=== PATIENT | male | born 1975 | race Caucasian/White ===

== ENCOUNTER 2017-07-17 22:48 | Day surgery (SDC) | payer OTHER ==
--- NOTE | 2017-07-17 23:49 | PDOC ---
History of Present Illness - General Chief Complaint: Injury Stated Complaint: PCP SENT/RT LEG PAIN Time Seen by Provider: 07/17/17 23:19 - History of Present Illness Initial Comments: 07/17/17 23:40 Pt is a 42M with PMH HTN, MRSA cellulitis requiring debriedment 4 yr ago, L Bejarano 's palsy, and recent fungal infection of L foot (completed course of fluconazole ) who presents to ED sent by his orthopedist (Dr. Rosas Cole) for preop workup for Right knee surgery tomorrow. Pt states he had a traumatic sub-acute complete right quadriceps tendon tear on 07/09/17. He went to see Dr. Coel today who wanted to operate on the knee tomorrow and sent pt to ED with a letter outlining the requested workup, which includes CXR, EKG, UA, CBC, BMP, PT, PTT, INR, type & screen. Pt currently has no pain and no complaints. Denies headache, cp, sob, nausea, vomiting, diarrhea, difficulty eating/ drinking. Past History - Past Medical History Allergies/Adverse Reactions: Allergies Allergy/AdvReac Type Severity Reaction Status Date / Time primaquine Allergy Verified 07/17/17 22:51 Home Medications: Ambulatory Orders Amlodipine Besylate/Benazepril [Lotrel 5-10 mg Capsule] 1 cap PO DAILY 07/18/17 Naproxen Sodium [Naproxen Sodium Cr] 500 mg PO PRN 07/18/17 Oxycodone HCl/Acetaminophen [Oxycodone-Acetaminophen 5-325] 1 each PO PRN COPD: No HTN: Yes Other medical history: bells palsy - Suicide/Smoking/Psychosocial Hx Smoking History: Current every day smoker Number of Cigarettes Smoked Daily: 10 Information on smoking cessation initiated: No Review of Systems - Review of Systems Able to Perform ROS?: Yes Is the patient limited Y[place]ut proficient: No Constitutional: Yes: Symptoms Reported. No: Chills, Diaphoresis, Fever HEENTM: Yes: Symptoms Reported. No: Blurred Vision Respiratory: Yes: Symptoms reported. No: Cough, Shortness of Breath Cardiac (ROS): Yes: Symptoms Reported. No: Chest Pain, Edema, Irregular Heart Rate, Syncope ABD/GI: Yes: Symptoms Reported. No: Abdominal Distended, Diarrhea, Nausea, Vomiting, Indigestion, Abdominal cramping : Yes: Symptoms Reported. No: Burning, Dysuria, Discharge Musculoskeletal: Yes: Symptoms Reported, Joint Pain (right knee) *Physical Exam - Vital Signs Last Vital Signs Temp Pulse Resp BP Pulse Ox 98.5 F 94 H 18 140/73 96 07/17/17 22:51 07/17/17 22:51 07/17/17 22:51 07/17/17 22:51 07/17/17 22:51 - Physical Exam General Appearance: Yes: Appropriately Dressed. No: Apparent Distress HEENT: positive: EOMI, RITESH, Normal ENT Inspection Neck: positive: Supple. negative: Tender Respiratory/Chest: positive: Lungs Clear, Normal Breath Sounds. negative: Chest Tender, Respiratory Distress, Accessory Muscle Use Cardiovascular: positive: Regular Rhythm, Regular Rate, S1, S2. negative: Edema , JVD, Murmur Vascular Pulses: Dorsalis-Pedis (R): 2+, Doralis-Pedis (L): 2+ Gastrointestinal/Abdominal: positive: Normal Bowel Sounds, Flat, Soft. negative : Tender, Organomegaly Extremity: negative: Normal Inspection (right leg splint for R quad tendon tear) Neurologic: positive: power checker II-XII NML intact, Fully Oriented, Alert, Normal Mood/ Affect, Normal Response ED Treatment Course - LABORATORY CBC & Chemistry Diagram: 07/18/17 02:15 07/18/17 02:15 Medical Decision Making - Medical Decision Making 07/17/17 23:49 Pt is a 42M w/ PMH HTN, MRSA cellulitis, L bejarano's palsy, recent fungal infection of foot who was sent to ED by Dr. Rosas Cole for pre-op workup for right knee surgery tomorrow. -CXR -EKG -UA -CBC -BMP -PT -PTT -INR -type and screen 07/17/17 23:50 Microblog sent to Admitting phone. 07/17/17 23:52 Attending spoke with admitting hospitalist who accepts admission to obs. Admission order placed 07/18/17 00:11 Pt counselled extensively on smoking cessation. 07/18/17 01:25 Pt seen by hospitalist 07/18/17 03:29 No admission order present Admission order placed again 07/18/17 04:12 No complaints at this time *DC/Admit/Observation/Transfer Diagnosis at time of Disposition: Tendon tear - Discharge Dispostion Admit: Yes - Referrals - Patient Instructions - Post Discharge Activity
--- NOTE | 2017-07-17 23:49 | PDOC ---
Attending Attestation - Resident Resident Name: Margarito Nolasco - ED Attending Attestation I have performed the following: I have examined & evaluated the patient, The case was reviewed & discussed with the resident, I agree w/resident's findings & plan, Exceptions are as noted - HPI HPI: 07/17/17 23:44 Pt is for pre-op for right knee surgery tomorrow. Pt has no complaints. - Physicial Exam PE: 07/17/17 23:47 *Physical Exam General Appearance: Yes: Appropriately Dressed. No: Apparent Distress, Intoxicated HEENT: positive: EOMI, RITESH, Normal ENT Inspection, Normal Voice, TMs Normal, Pharynx Normal. negative: Pale Conjunctivae, Photophobia, Scleral Icterus (R), Scleral Icterus (L) Neck: positive: Trachea midline, Normal Thyroid, Supple. negative: Tender, Rigid, Carotid bruit, Stridor, Lymphadenopathy (R), Lymphadenopathy (L), Thyromegaly Respiratory/Chest: positive: Lungs Clear, Normal Breath Sounds. negative: Chest Tender, Respiratory Distress, Accessory Muscle Use, Labored Respiration, RES, Crackles, Rales, Rhonchi, Stridor, Wheezing, Dullness Cardiovascular: positive: Regular Rhythm, Regular Rate, S1, S2. negative: Edema , JVD, Murmur, Bradycardia, Tachycardia Vascular Pulses: Dorsalis-Pedis (R): 2+, Doralis-Pedis (L): 2+ Gastrointestinal/Abdominal: positive: Normal Bowel Sounds, Flat, Soft. negative : Tender, Organomegaly, Pulsatile Mass, Increased Bowel Sounds, Decreased BS, Distended, Guarding, Rebound, Hernia, Hepatomegaly, Spleenomegaly Lymphatic: negative: Adenopathy, Tenderness Musculoskeletal: positive: Normal Inspection. negative: CVA Tenderness, Decreased Range of Motion Extremity: positive: Normal Capillary Refill, Normal Inspection, Normal Range of Motion, Pelvis Stable. negative: Tender, Pedal Edema, Swelling, Erythema Integumentary: positive: Normal Color, Dry, Warm. negative: Cyanotic, Erythema , Jaundice, Rash Neurologic: positive: primary mill roller II-XII NML intact, Fully Oriented, Alert, Normal Mood/ Affect, Motor Strength 5/5. negative: EOM Palsy, Facial Droop, Sensory Deficit - Medical Decision Making 07/17/17 23:48 Pt admitted to Med surg, for Pre-op for right knww surgery for Dr. Og Cole
--- NOTE | 2017-07-18 01:40 | PN ---
Teaching Attending Note Name of Resident: Laci Kilpatrick ATTENDING PHYSICIAN STATEMENT I saw and evaluated the patient. I reviewed the resident's note and discussed the case with the resident. I agree with the resident's findings and plan as documented. SUBJECTIVE: 42 M with pmhx of HTN, MRSA cellulitis s/p debridement 4 years ago, L. foot fungal infection post fluconazole, L. Bejarano's Palsy (s/p tx. with Prednisone/ Valcyclovir), current smoker, who was sent in from ;s office for pre-op eval before surgery in am. Pt. had work injury resulting in traumatic sub-acute right quadricep tendon tear on 07/09/17. Pt. States pain is controlled and denies chest pain, pressure, or shortness of breath. OBJECTIVE: Physical: VS: Vital Signs Period Temp Pulse Resp BP Sys/Weiss Pulse Ox Last 24 Hr 98.5 F 94 18 140/73 96 GEN: NAD, Resting in bed AAox3 HEENT: NCAT, PERRL, Throat without erythema or exudates CARD: RRR S1, S2 RESP:CTAB ABD: BSx4, NTD to palaption EXT: - C/C/E CBCD WBC 10.4 K/mm3 (4.0-10.0) H 07/18/17 02:15 RBC 4.42 M/mm3 (4.00-5.60) 07/18/17 02:15 Hgb 14.1 GM/dL (11.7-16.9) 07/18/17 02:15 Hct 42.0 % (35.4-49) 07/18/17 02:15 MCV 95.1 fl (80-96) 07/18/17 02:15 MCHC 33.6 g/dl (32.0-35.9) 07/18/17 02:15 RDW 12.5 % (11.9-15.9) 07/18/17 02:15 Plt Count 250 K/MM3 (134-434) 07/18/17 02:15 MPV 8.7 fl (7.5-11.1) 07/18/17 02:15 EKG: NSR TWI III, AVf, LAD CXR- No acute process ASSESSMENT AND PLAN: 42 M with pmhx of HTN, MRSA cellulitis s/p debridement 4 years ago, L. foot fungal infection post fluconazole, L. Bejarano's Palsy (s/p tx. with Prednisone/ Valcyclovir), who was sent in from ;s office for pre-op eval for. R. Quadricep Tendon tear 1.) R. Quadricep tendon tear - Type and Screen - Coags - NPO - Ivf - UA, UCx - CBC, BMP, UA, UCx 2.) HTN - C/W Amlodipine and Rampril 3.) Bejarano's Palsy - S/P Tx - Monitor 4.) Dvt Ppx - Low Risk - As per ortho post sx Place in Med-Sx
[2017-07-18 02:29] LABS: BASO # 0.1 # (0.1-1); BASO % 0.5 % (0-2.0); EOS # 0.3 # (0-4.5); EOS % 2.8 % (0-4.5); LYMPH # 2.7 (8-40); MCHC 33.6 g/dl (32.0-35.9); MEAN CELL VOLUME 95.1 fl (80-96); MEAN PLT VOLUME 8.7 fl (7.5-11.1); MONO # 0.8 # (3.8-10.2); NEUT # 6.5 # (42.8-82.8); NEUT % 63.1 % (42.8-82.8); PLATELET COUNT 250 K/MM3 (134-434); RDW 12.5 % (11.9-15.9); WHITE BLOOD COUNT 10.4 K/mm3 (4.0-10.0)
[2017-07-18 02:46] LABS: INR 1.03 (0.82-1.09); PROTHROMBIN TIME (PATIENT) 11.6 SEC (9.98-11.88)
--- NOTE | 2017-07-18 02:57 | HP ---
CHIEF COMPLAINT: Pre-op workup for R quad tendon repair HISTORY OF PRESENT ILLNESS: 42 yo man w/ pmh of HTN, L sided bells palsy, and MRSA cellulitis, who presents to ED for pre-op work-up for surgical repair of R quadricep tear on 07/[address] Rosas Ray. Pt experienced traumatic complete R quad tendon rupture at work on 07/09. Referred to Dr. Ray for surgical repair, who sent patient to ED today for pre-op clearance and work-up for surgical repair tomorrow. Pt denies any BRAVO/dizziness, CP, SOB, BECERRA, cough, N/V, abdominal pain, syncope, new neurologic symptoms. Pt w/ no adverse reactions to anesthesia in past. Denies any cardiovascular or pulmonary conditions that would preclude from surgery. Pain is currently well controlled and pt has no other complaints. Pt recently completed course of valtrex/prednisone for bells palsy diagnosed 2- 3 weeks ago. Believed to be idiopathic/psychosomatic in nature per patient. ER course was notable for: (1) Normal vitals (2) Unremarkable CXR (3) Recent Travel: No PAST MEDICAL HISTORY: [place] palsy HTN Fungal foot infection MRSA cellulitis PAST SURGICAL HISTORY: I+D for MRSA cellulitis Social History: Smoking: Current smoker. 10 cigs/day Alcohol: Denies Drugs: Denies Family History: Noncontributory. No hx of cardiovascular or pulmonary conditions. Allergies primaquine Allergy (Verified 07/17/17 22:51) HOME MEDICATIONS: Home Medications Medication Instructions Recorded Amlodipine Besylate/Benazepril 1 cap PO DAILY 07/18/17 [Lotrel 5-10 mg Capsule] Naproxen Sodium [Naproxen Sodium 500 mg PO PRN 07/18/17 Cr] Oxycodone HCl/Acetaminophen 1 each PO PRN 07/18/17 [Oxycodone-Acetaminophen 5-325] REVIEW OF SYSTEMS CONSTITUTIONAL: Absent: fever, chills, diaphoresis, generalized weakness, malaise, loss of appetite, weight change HEENT: Absent: rhinorrhea, nasal congestion, throat pain, throat swelling, difficulty swallowing, mouth swelling, ear pain, eye pain, visual changes CARDIOVASCULAR: Absent: chest pain, syncope, palpitations, irregular heart rate, lightheadedness , peripheral edema RESPIRATORY: Absent: cough, shortness of breath, dyspnea with exertion, orthopnea, wheezing, stridor, hemoptysis GASTROINTESTINAL: Absent: abdominal pain, abdominal distension, nausea, vomiting, diarrhea, constipation, melena, hematochezia GENITOURINARY: Absent: dysuria, frequency, urgency, hesitancy, hematuria, flank pain, genital pain MUSCULOSKELETAL: R knee arthralgia and swelling w/ decreased mobility Absent: myalgia, back pain, neck pain SKIN: Absent: rash, itching, pallor HEMATOLOGIC/IMMUNOLOGIC: Absent: easy bleeding, easy bruising, lymphadenopathy, frequent infections ENDOCRINE: Absent: unexplained weight gain, unexplained weight loss, heat intolerance, cold intolerance NEUROLOGIC: Absent: headache, focal weakness or paresthesias, dizziness, unsteady gait, seizure, mental status changes, bladder or bowel incontinence PHYSICAL EXAMINATION Vital Signs - 24 hr 07/17/17 22:51 Temperature 98.5 F Pulse Rate 94 H Respiratory 18 Rate Blood Pressure 140/73 O2 Sat by Pulse 96 Oximetry (%) GENERAL: Awake, alert, and fully oriented, in no acute distress. HEAD: Normal with no signs of trauma. L facial droop noted. EYES: Pupils equal, round and reactive to light, extraocular movements intact, sclera anicteric, conjunctiva clear. No lid lag. EARS, NOSE, THROAT: Ears normal, nares patent, oropharynx clear without exudates. Moist mucous membranes. NECK: Normal range of motion, supple without lymphadenopathy, JVD, or masses. LUNGS: Breath sounds equal, clear to auscultation bilaterally. No wheezes, and no crackles. No accessory muscle use. HEART: Regular rate and rhythm, normal S1 and S2 without murmur, rub or gallop. ABDOMEN: Soft, nontender, not distended, normoactive bowel sounds, no guarding, no rebound, no masses. No abdominal bruit. No hepatomegaly or splenomegaly. MUSCULOSKELETAL: R mechanical knee brace noted on R leg, fixed in full extension with mild tenderness to palpation. No other bony deformities, decreased ROM or tenderness. No CVA tenderness. UPPER EXTREMITIES: 2+ pulses, warm, well-perfused. No cyanosis. No clubbing. No peripheral edema. LOWER EXTREMITIES: 2+ pulses DP, PT pulses; warm, well-perfused. No calf tenderness. No peripheral edema. NEUROLOGICAL: Cranial nerves II-XII intact. Normal speech. Gait limited by R leg brace, however otherwise normal PSYCHIATRIC: Cooperative. Good eye contact. Appropriate mood and affect. SKIN: Warm, dry, normal turgor, no rashes or lesions noted, normal capillary refill. Labs pending No micro pending EKG pending CXR 07/18 - No pathology noted. ASSESSMENT/PLAN: 42 yo man w/ pmh of HTN, L sided bells palsy, and MRSA cellulitis, who presents to ED for pre-op work-up for surgical repair of R quadricep tear on 07/[address] Rosas Ray. #R quadricep tendon rupture - CXR, EKG, UA, CBC, BMP, PT/PTT/INR, T&S per Dr. Ray - Pain control with paracetemol - NPO after midnight - For surgery w/ Dr. Ray tomorrow - Pt has no hx of cardiac arrhythmias, valvular dz or chronic pulmonary conditions, unlimited exercise tolerance, w/ only well-controlled HTN as a chronic medical condition. No advanced age, other cardiovascular comorbities or hx of adverse reaction to anesthesia. Pt is low risk for this intermediate-risk , non-emergent elective surgery. - Post-op management per surgical team #HTN - Continue home BP meds (Amlodipine/benazepril 5-10) #Bejarano's Palsy - F/u w/ outpt neurologist - Completed prednisone, valtrex course PPX Post-op DVT ppx per surgical team FEN PO hydration Daily BMPs, no electrolyte abnormalities NPO after midnight Dispo: Admit to med-surg for pre-op work-up, likely surgery tomorrow pending clearance Plan discussed with attending, Dr. Mich Kilpatrick, PGY1 Visit type - Emergency Visit Emergency Visit: No - New Patient This patient is new to me today: Yes Date on this admission: 07/18/17 - Critical Care Critical Care patient: No
[2017-07-18 03:12] LABS: ALBUMIN 3.6 g/dl (3.4-5.0); ALK PHOS 87 U/L (45-117); ANION GAP 10 (8-16); BILIRUBIN,TOTAL 0.5 mg/dL (0.2-1.0); CALCIUM 8.6 mg/dL (8.5-10.1); CO2 26 mmol/L (21-32); CREATININE 1.2 mg/dL (0.7-1.3); GLUCOSE,RANDOM 103 mg/dL (74-106); SGOT/AST 22 U/L (15-37); SGPT/ALT 38 U/L (12-78)
--- NOTE | 2017-07-18 08:33 | PN ---
Physical Exam: SUBJECTIVE: Patient seen and examined OBJECTIVE: Vital Signs Period Temp Pulse Resp BP Sys/Weiss Pulse Ox Last 24 Hr 98.5 F 94 18 140/73 96 GENERAL: The patient is awake, alert, and fully oriented, in no acute distress. HEAD: Normal with no signs of trauma. EYES: PERRL, extraocular movements intact, sclera anicteric, conjunctiva clear. No ptosis. ENT: Ears normal, nares patent, oropharynx clear without exudates, moist mucous membranes. NECK: Trachea midline, full range of motion, supple. LUNGS: Breath sounds equal, clear to auscultation bilaterally, no wheezes, no crackles, no accessory muscle use. HEART: Regular rate and rhythm, S1, S2 without murmur, rub or gallop. ABDOMEN: Soft, nontender, nondistended, normoactive bowel sounds, no guarding, no rebound, no hepatosplenomegaly, no masses. EXTREMITIES: 2+ pulses, warm, well-perfused, no edema. NEUROLOGICAL: Cranial nerves II through XII grossly intact. Normal speech, gait not observed. PSYCH: Normal mood, normal affect. SKIN: Warm, dry, normal turgor, no rashes or lesions noted Laboratory Results - last 24 hr 07/18/17 07/18/17 07/18/17 02:15 02:15 02:15 WBC 10.4 H RBC 4.42 Hgb 14.1 Hct 42.0 MCV 95.1 MCH 32.0 MCHC 33.6 RDW 12.5 Plt Count 250 MPV 8.7 Neutrophils % 63.1 Lymphocytes % 26.1 Monocytes % 7.5 Eosinophils % 2.8 Basophils % 0.5 PT with INR 11.60 INR 1.03 PTT (Actin FS) Sodium 141 Potassium 3.8 Chloride 105 Carbon Dioxide 26 Anion Gap 10 BUN 19 H Creatinine 1.2 Creat Clearance w eGFR > 60 Random Glucose 103 Calcium 8.6 Total Bilirubin 0.5 AST 22 ALT 38 Alkaline Phosphatase 87 Total Protein 7.0 Albumin 3.6 Blood Type Antibody Screen 07/18/17 07/18/17 02:15 02:15 WBC RBC Hgb Hct MCV MCH MCHC RDW Plt Count MPV Neutrophils % Lymphocytes % Monocytes % Eosinophils % Basophils % PT with INR INR PTT (Actin FS) 34.1 Sodium Potassium Chloride Carbon Dioxide Anion Gap BUN Creatinine Creat Clearance w eGFR Random Glucose Calcium Total Bilirubin AST ALT Alkaline Phosphatase Total Protein Albumin Blood Type O POSITIVE Antibody Screen Negative Active Medications Generic Name Dose Route Start Last Admin Trade Name Freq PRN Reason Stop Dose Admin Amlodipine Besylate 5 mg 07/18/17 10:00 Norvasc - PO DAILY [place] Lisinopril 10 mg 07/18/17 10:00 Prinivil PO DAILY [place] Oxycodone/Acetaminophen 1 combo 07/18/17 02:45 Percocet 5/325 - PO PRN [facility] ASSESSMENT/PLAN:
[2017-07-18] MEDS ORDERED: amLODIPine BESYLATE 5 MG TABLET (FP) ONE (08:45)
[2017-07-18] MEDS ORDERED: LISINOPRIL 5 MG TABLET (FP) ONE (08:46)
[2017-07-18] MEDS: amLODIPine BESYLATE 5 MG TABLET (FP) PO SCH ×2 (08:47→19:07)
[2017-07-18] MEDS: LISINOPRIL 10 MG TABLET (FP) PO SCH ×2 (08:47→19:07)
[2017-07-18] MEDS ORDERED: ACETAMINOPHEN 325 MG TABLET (FP) PO PRN (08:50)
[2017-07-18] MEDS ORDERED: oxyCODONE HCL 5 MG TABLET PO PRN ×3 (08:50→16:41)
[2017-07-18] MEDS ORDERED: PATIENT'S OWN MEDICATION (NON-FORMULARY) (Amlodipine Besylate/Benazepril [Lotrel 5-10 Mg C PO SCH (10:00)
[2017-07-18 10:07] LABS: CPK 234 IU/L (39-308)
[2017-07-18 10:08] LABS: TROPONIN I < 0.02 ng/ml (0.00-0.05)
[2017-07-18 12:32] VITALS: BMI 29.3
[2017-07-18] MEDS ORDERED: DEXTROSE 5%-NORMAL SALINE 1,000 ML IV SCH (12:45)
[2017-07-18] MEDS ORDERED: DEXAMETHASONE SOD PHOSPHATE/PF 10 MG/ML SDV ONE (13:22)
[2017-07-18] MEDS ORDERED: BUPIVACAINE HCL/PF (5 MG/ML) 30 ML VIAL IJ ONE (13:23)
[2017-07-18] MEDS ORDERED: MIDAZOLAM HCL 2 MG/2 ML SINGLE DOSE VIAL ONE (13:23)
--- NOTE | 2017-07-18 13:27 | EKG ---
Test Reason : Blood Pressure : / mmHG Vent. Rate : 076 BPM Atrial Rate : 076 BPM P-R Int : 158 ms QRS Dur : 088 ms QT Int : 388 ms P-R-T Axes : 046 -31 -07 degrees QTc Int : 436 ms NORMAL SINUS RHYTHM LEFT AXIS DEVIATION MODERATE VOLTAGE CRITERIA FOR LVH, MAY BE NORMAL VARIANT ABNORMAL ECG NO PREVIOUS ECGS AVAILABLE Confirmed by CALISTA GA MD ([id number]) on 07/18/2017 1:26:48 PM Referred By: Confirmed By:CALISTA GA MD
--- NOTE | 2017-07-18 13:27 | EKG ---
Test Reason : Blood Pressure : / mmHG Vent. Rate : 059 BPM Atrial Rate : 059 BPM P-R Int : 150 ms QRS Dur : 086 ms QT Int : 422 ms P-R-T Axes : 017 -16 -15 degrees QTc Int : 417 ms SINUS BRADYCARDIA MINIMAL VOLTAGE CRITERIA FOR LVH, MAY BE NORMAL VARIANT BORDERLINE ECG WHEN COMPARED WITH ECG OF 18-JUL-2017 02:29, NO SIGNIFICANT CHANGE WAS FOUND Confirmed by SURY THRASHER, CALISTA ([id number]) on 07/18/2017 1:27:30 PM Referred By: Confirmed By:CALISTA GA MD
[2017-07-18] MEDS ORDERED: oxyCODONE HCL 10 MG SUSTAINED ACTING TABLET PO ONE (13:28)
[2017-07-18] MEDS ORDERED: TRANEXAMIC ACID 1000 MG/10 ML VIAL IVPUSH ONE (13:28)
[2017-07-18] MEDS ORDERED: CEFAZOLIN 2 GM/D5W 2 GM/50 ML ML IVPB ONE (13:28)
[2017-07-18] MEDS ORDERED: VANCOMYCIN 1,000 MG in DEXTROSE 5%-WATER - 250 ML IVPB ONE ×2 (13:28→18:57)
[2017-07-18] MEDS ORDERED: ROPIVACAINE HCL 0.5% 30ML VIAL ONE (13:44)
[2017-07-18] MEDS ORDERED: BUPIVACAINE HCL/PF 2.5 MG/ML - 30 ML VIAL IJ ONE (13:44)
--- NOTE | 2017-07-18 13:47 | PN ---
Progress Note (short form) - Note Progress Note: 42M s/p mechanical slip/injury at work (07/09/2017) p/w sub-acute complete right quadriceps tendon tear. Pain well controlled. Pt. admitted through ED overnight to medical hospitalist service. No acute events. Labs & vitals reviewed. PE: AAO x 3, NAD. R Knee: Knee immobilizer intact & in place. (+) Sulcus sign over distal quadriceps tendon. Unable to SLR. NVI distally. Imaging: No new imaging obtained. Outpatient MRI R knee demonstrates full thickness quadriceps tear ~ 2.1cm proximal to the superior pole patella. A/P: 42M p/w complete right quadriceps tendon tear. -Long conversation held with patient regarding natural history and progression of quadriceps tendon tears. -Risks, benefits, and alternatives of non-surgical VS surgical intervention discussed with and understood by patient. He wishes to pursue a surgical solution to his right quadriceps tendon tear. -NPO, IVF. -Consent in chart for open repair right quadriceps tendon tear. -Pain control. -Hold DVT PPx. -Care per primary medical team. -Will follow.
[2017-07-18] MEDS ORDERED: PROPOFOL 20 ML ONE ×2 (14:32→15:14)
[2017-07-18] MEDS ORDERED: VANCOMYCIN 1,000 MG VIAL (RESTRICTED TO ID ONLY) ONE (14:37)
[2017-07-18] MEDS ORDERED: ONDANSETRON 4 MG/2 ML VIAL ONE (14:37)
[2017-07-18] MEDS ORDERED: DEXAMETHASONE SOD PHOSPHATE 4 MG/1 ML VIAL ONE (14:37)
[2017-07-18] MEDS ORDERED: ceFAZolin SODIUM 1 GM VIAL ONE (14:37)
--- NOTE | 2017-07-18 14:44 | HOSP ---
Subjective - Review of Symptoms Musculoskeletal: Yes: Extremity Pain Physical Examination Vital Signs: Vital Signs Temperature 97.8 F 07/18/17 13:00 Pulse Rate 62 07/18/17 13:00 Respiratory Rate 18 07/18/17 13:00 Blood Pressure 127/81 07/18/17 13:00 O2 Sat by Pulse Oximetry (%) 99 07/18/17 13:00 Constitutional: Yes: Well Nourished, Anxious Eyes: Yes: WNL, Conjunctiva Clear, EOM Intact HENT: Yes: WNL, Atraumatic, Normocephalic Neck: Yes: WNL, Supple, Trachea Midline Cardiovascular: Yes: WNL, Regular Rate and Rhythm, S1, S2 Respiratory: Yes: WNL, Regular, CTA Bilaterally Gastrointestinal: Yes: WNL, Normal Bowel Sounds, Soft ...Rectal Exam: Yes: Deferred Renal/: Yes: WNL Musculoskeletal: Yes: Other (right lower extremity-->knee immobilzer, point tenderness noted to pre-patella) Edema: No Peripheral Pulses WNL: Yes Peripheral Pulses: Left Radial: 4+, Right Radial: 4+, Left Doralis Pedis: 3+, Right Dorsalis Pedis: 3+, Left Femoral: 3+, Right Femoral: 3+ Integumentary: Yes: WNL Neurological: Yes: WNL, Alert, Oriented ...Motor Strength: WNL Psychiatric: Yes: WNL, Alert, Oriented Labs: CBC, BMP 07/18/17 02:15 07/18/17 02:15 Hospitalist Encounter Assessment: patient was transferred to [facility] for right tendon quadracep repair - remain npo, ivf ordered - hold ac pending OR
[2017-07-18] MEDS ORDERED: PROMETHAZINE HCL 25 MG/1 ML VIAL IVPUSH PRN (16:41)
[2017-07-18] MEDS ORDERED: ONDANSETRON 4 MG/2 ML VIAL IVPUSH PRN ×2 (16:41→18:57)
[2017-07-18] MEDS ORDERED: ACETAMINOPHEN 325 MG TABLET (FP) ONE (17:41)
[2017-07-18] MEDS: ACETAMINOPHEN 325 MG TABLET (FP) PO SCH ×2 (17:43→19:08)
[2017-07-18] MEDS ORDERED: MAG HYDROX/AL HYDROX/SIMETH 30 ML UNIT-DOSE CUP PO PRN (18:57)
[2017-07-18] MEDS ORDERED: MAGNESIUM HYDROX 2400MG/30ML ORAL SUSPENSION 30 ML CUP PO PRN (18:57)
[2017-07-18] MEDS ORDERED: LACTATED RINGERS SOLUTION 1,000 ML IV SCH (19:00)
[2017-07-18] MEDS ORDERED: VANCOMYCIN 1 GRAM (PRE-DOCKED) 1,000 MG/250 ML BAG IVPB ONE (19:27)
--- NOTE | 2017-07-18 21:22 | OP ---
DATE OF OPERATION: 07/18/2017 SURGEON: Rosas Cole MD CALL CENTER ANALYST: Og Cole MD PREOPERATIVE DIAGNOSIS: Complete rupture of right quadriceps tendon. POSTOPERATIVE DIAGNOSIS: Complete rupture of right quadriceps tendon. SURGICAL PROCEDURE: Open right quadriceps tendon repair. ANESTHESIA: Spinal and regional. POSITION: Supine. INCISION: Anterior. ESTIMATED BLOOD LOSS: Minimal. INTRAVENOUS FLUIDS: See Anesthesia record. SPECIMENS: None. DRAINS: None. COMPLICATIONS: None. URINE OUTPUT: None. BACTERIOLOGY: None. TRANSFUSIONS: None. CLOSURE: No. 1 and 2-0 Vicryl with 3-0 Biosyn/Monocryl. INDICATIONS: The patient is a 42-year-old male who was seen in our outpatient orthopedic office yesterday and diagnosed with a closed, complete right quadriceps tendon tear. He was indicated for urgent open surgical repair to maximize the potential for this injury to heal, to facilitate early motion and mobilization, and to prevent the complications associated with sedentary lifestyle. The patient was identified in the holding area by his armband. A long discussion was held with the patient regarding the risks, benefits, and alternatives of the above named procedure. Risks include, but are not limited to: pain, bleeding, infection, damage to surrounding structures (including nerves, blood vessels, skin, ligaments, tendons, and bone), wound complications, failure of surgical repair, need for further surgery, blood clots , myocardial infarction, pulmonary embolism, anesthesia complications, compartment syndrome, limb loss, limp, loss of function, and . Benefits as mentioned above. Alternatives include no surgery. All questions were answered. The patient understood and agreed to the procedure. Informed consent was obtained, witnessed, and verified. The patient's correct operative limb - that is the right lower extremity - was marked, and the patient was taken to the operating room after being seen by the anesthesia and nursing staff. PROCEDURE: The patient was brought into the operating room, placed on the OR table and secured with a safety strap. Consent and the operative side were again verified with the patient and Nursing and anesthesia staff. Anesthesia was then administered without complications including IV Ancef and Vancomycin, as he has suffered previous MRSA infections. A timeout was done, led by me, the attending surgeon. A preoperative orthopaedic exam revealed a positive sulcus sign over the right distal quadriceps tendon as well as a knee effusion. The patient was positioned with all bony prominences well padded, a tourniquet was placed proximally on the right thigh and set 300 mmHg. The operative site was then prepped and draped in standard sterile fashion. A timeout was again done. The limb was exsanguinated using an Esmarch, the tourniquet was inflated, and the case began. A standard midline longitudinal incision was made overlying the right quadriceps mechanism and extending to the middle of the patellar ligament. Sharp dissection was carried down to the level of the quadriceps mechanism where the complete transverse tear of the quadriceps tendon was identified. The wound and the intra- articular space were copiously irrigated via patellofemoral joint. Next, the soft tissues adjacent to the quadriceps mechanism were primarily repaired using No. 1 Vicryl stitches. Next , a No. 2 FiberWire suture was used in Krackow-stitch fashion to secure the quadriceps mechanism. After this, 2 longitudinal and parallel drill holes were made using a 2.7-mm drill bit into the patella from [id number] direction. The free ends of the FiberWire stitch were passed through these drill holes using a Hayden needle and nylon loop suture. With the knee fully extended, these FiberWire sutures were then fastened and tied tightly beneath the inferior pole of the patella. The wounds were then copiously irrigated, and hemostasis was assured. The wounds were closed using a combination of No. 1 and 2-0 Vicryl sutures as well as a 3-0 Biosyn suture. A sterile compressive dressing was applied, and the sponge and needle counts were correct at the end of the case. The tourniquet was then released. A long-leg cylinder cast was then applied. The patient was then transferred to a hospital bed and transferred to the recovery room in stable condition, having tolerated the procedure well. Sawyer, the attending surgeon, was present and scrubbed throughout the case. MD CLAU Aleman/[id number] [facility] [place]
[2017-07-18] MEDS: GABAPENTIN 300 MG CAPSULE (FP) PO SCH (21:34)
[2017-07-18] MEDS: oxyCODONE HCL 10 MG SUSTAINED ACTING TABLET PO SCH (21:34)
[2017-07-18] MEDS: SENNOSIDES/DOCUSATE COMBO (SENNA PLUS) TABLET (UD) PO SCH (21:36)
[2017-07-19] MEDS: ACETAMINOPHEN 325 MG TABLET (FP) PO SCH ×3 (00:11→12:50)
[2017-07-19] MEDS: CEFAZOLIN 2 GM/D5W 2 GM/50 ML ML IVPB SCH ×2 (02:08→09:42)
[2017-07-19 08:44] LABS: ANION GAP 8 (8-16); CALCIUM 9.1 mg/dl (8.4-10.2); CO2 23 mmol/L (22-28); CREATININE 0.7 mg/dl (0.6-1.3); GLUCOSE,RANDOM 153 mg/dl (74-106)
[2017-07-19 08:56] LABS: MCH 32.7 pg (25.7-33.7); MEAN CELL VOLUME 96.1 fl (80-96); MEAN PLT VOLUME 8.9 fl (7.5-11.1); PLATELET COUNT 249 K/MM3 (134-434); RDW 11.5 % (11.9-15.9); WHITE BLOOD COUNT 20.3 K/mm3 (4.0-10.8)
[2017-07-19] MEDS: LISINOPRIL 10 MG TABLET (FP) PO SCH (09:41)
[2017-07-19] MEDS: SENNOSIDES/DOCUSATE COMBO (SENNA PLUS) TABLET (UD) PO SCH (09:41)
[2017-07-19] MEDS: GABAPENTIN 300 MG CAPSULE (FP) PO SCH (09:41)
[2017-07-19] MEDS: oxyCODONE HCL 10 MG SUSTAINED ACTING TABLET PO SCH (09:41)
[2017-07-19] MEDS: amLODIPine BESYLATE 5 MG TABLET (FP) PO SCH (09:41)
[2017-07-19 09:55] LABS: PLATELET ESTIMATE ADEQUATE
[2017-07-19] MEDS ORDERED: PANTOPRAZOLE 40 MG TABLET (FP) PO SCH (10:00)
[2017-07-19] MEDS ORDERED: METOCLOPRAMIDE HCL 10 MG TABLET (FP) PO SCH (11:00)
--- NOTE | 2017-07-19 11:23 | PN ---
Progress Note (short form) - Note Progress Note: 42M POD1 s/p right quadriceps tendon repair under spinal anesthetic with peripheral nerve blocks for post operative pain control. Pt states that pain is well controlled, reports no anesthetic complications. Sensory and motor function is intact in bilateral lower extremities.
[2017-07-19 11:32] VITALS: BP 157/90; PULSE 70; TEMP 98.6
[2017-07-19 12:13] LABS: PH,URINE 5.5 (4.5-8); URINE APPEARANCE Clear; URINE BILIRUBIN Negative (NEGATIVE); URINE BLOOD Negative (NEGATIVE); URINE COLOR YELLOW; URINE GLUCOSE (UA) 2+ (NEGATIVE); URINE KETONE Trace (NEGATIVE); URINE LEUK ESTERASE Negative (NEGATIVE); URINE NITRITE Negative (NEGATIVE); URINE PROTEIN Negative (NEGATIVE); URINE UROBILINOGEN 0.2 (0.2-1.0)
--- NOTE | 2017-07-19 12:15 | DS ---
Physical Exam: SUBJECTIVE: Patient seen and examined, patient is ambulatory with crutches, reports minimal pain to the right lower extremity, patient denies any paresthesia OBJECTIVE: 42 yo man w/ pmh of HTN, L sided bells palsy, and MRSA cellulitis, who presents to ED for pre-op work-up for surgical repair of R quadricep tear on 07/[address] Rosas Ray. Pt experienced traumatic complete R quad tendon rupture at work on 07/09. Referred to Dr. Ray for surgical repair, who sent patient to ED today for pre-op clearance and work-up for surgical repair tomorrow. Pt denies any BRAVO/dizziness, CP, SOB, BECERRA, cough, N/V, abdominal pain, syncope, new neurologic symptoms. Pt w/ no adverse reactions to anesthesia in past. Denies any cardiovascular or pulmonary conditions that would preclude from surgery. Pain is currently well controlled and pt has no other complaints. Pt recently completed course of valtrex/prednisone for bells palsy diagnosed 2- 3 weeks ago. Believed to be idiopathic/psychosomatic in nature per patient. ER course was notable for: (1) Normal vitals (2) Unremarkable CXR Vital Signs Period Temp Pulse Resp BP Sys/Weiss Pulse Ox Last 24 Hr 97.6 F-98.6 F 54-97 14-218 119-166/65-99 94-99 PHYSICAL EXAM GENERAL: The patient is awake, alert, and fully oriented, in no acute distress. HEAD: Normal with no signs of trauma. EYES: PERRL, extraocular movements intact, sclera anicteric, conjunctiva clear. ENT: Ears normal, nares patent, oropharynx clear without exudates, moist mucous membranes. NECK: Trachea midline, full range of motion, supple. LUNGS: Breath sounds equal, clear to auscultation bilaterally, no wheezes, no crackles, no accessory muscle use. HEART: Regular rate and rhythm, S1, S2 without murmur, rub or gallop. ABDOMEN: Soft, nontender, nondistended, normoactive bowel sounds, no guarding, no rebound, no hepatosplenomegaly, no masses. EXTREMITIES: 2+ pulses, warm, well-perfused, no edema. RIGHT LOWER EXTREMITY: long leg cast, less than 3 second capillary refill, + 3 pedal pulse, patient is able to move the digits of the foot without any difficulty. NEUROLOGICAL: Cranial nerves II through XII grossly intact. Normal speech, gait not observed. PSYCH: Normal mood, normal affect. SKIN: Warm, dry, normal turgor, no rashes or lesions noted. LABS Laboratory Results - last 24 hr 07/18/17 07/19/17 07/19/17 23:49 08:05 08:05 WBC 20.3 H RBC 4.23 Hgb 13.8 Hct 40.6 MCV 96.1 H MCH 32.7 MCHC 34.0 RDW 11.5 L Plt Count 249 MPV 8.9 Neutrophils % (Manual) 92.0 H* Band Neutrophils % 2.0 Lymphocytes % (Manual) 3.0 L Monocytes % (Manual) 3 L Platelet Estimate Adequate Sodium 130 L Potassium 4.5 Chloride 99 Carbon Dioxide 23 Anion Gap 8 BUN 15 Creatinine 0.7 Random Glucose 153 H Calcium 9.1 Urine Color Yellow Urine Appearance Clear Urine pH 5.5 Ur Specific [place] 1.020 Urine Protein Negative Urine Glucose (UA) 2+ H Urine Ketones Trace Urine Blood Negative Urine Nitrite Negative Urine Bilirubin Negative Urine Urobilinogen 0.2 Ur Leukocyte Esterase Negative HOSPITAL COURSE: Patient was admitted from the emergency department for right quadricep tendon rupture, s/p open right quadricep tendon repair by Dr Cole, 07/18/17. On post op day 1, patient ambulated the hallway with crutches. Pain was well controlled with prn pain medications. patient has a past medical history of hypertension, amlodpine and lisiniopril (subsition for benzopril) was continued throughout admission, b/p remained at goal. PLAN -discharge home, patient declines VNS services - post operative care and cast instructions given to patient in hand and discussed at length with patient Date of Admission:07/18/17 Date of Discharge: 07/19/17 Minutes to complete discharge: 45 Discharge Summary Reason For Visit: TORN TENDON Current Active Problems Tendon tear (Acute) Condition: Improved - Instructions Diet, Activity, Other Instructions: Open right tendon quadicep repair instructions: non weight bearing to the right lower extremity at all times for 3 weeks--> use crutches to walk - It is important to take care of a cast or splint so that the skin under the cast doesn't get hurt or infected. - Do not get your cast wet. To keep your cast dry when you bathe, cover it with two plastic bags, and tape each bag separately to your skin with duct tape. Then keep your cast outside the tub or shower when you wash your body. If your cast gets wet, you can dry it with a department of mathematics chair set to the cool setting. Do not use a warm or hot setting, because those settings can burn the skin. You can also use a vacuum boat cleaner that has a hose to help dry your cast. Put the hose next to your cast so that you suck wet air out of the cast. - Keep your cast clean and avoid getting dirt or sand inside it. - Do not put anything inside your cast - Do not put powder or lotion on the skin near your cast. - Do not pull the lining out from inside the cast - If you have pain during the first few days, you can: Put ice on the cast Use a cold gel pack, bag of ice, or bag of frozen vegetables every 1 to 2 hours, for 15 minutes each time. Put a thin towel between the ice (or other cold object) and your skin. Keep your cast raised (for example, on pillows) to help reduce swelling To reduce swelling and pain, your cast needs to be raised above the level of your heart. Take medicine to relieve your pain such as acetaminophen for minimal pain and percocet for severe pain, a prescription was sent to the pharmacy. - If your skin itches, you can use a department of mathematics chair set to the cool setting to blow air inside the cast. Do not put anything in your cast to scratch the skin. - Call Dr Cole's office if: You have severe pain or pain that is getting worse You have a fever over 101.0 You have sores or cuts on the skin under the cast Your cast smells bad, feels too tight, or cracks You have swelling that causes pain You are unable to move your fingers or toes Your toes are blue or cold Your cast becomes soaking wet or you are unable to dry it please follow up with Dr Cole within 2 weeks Referrals: STAFF,NOT ON [Non Staff, Medical] - Rosas Cole MD [Staff Physician] - 2 Weeks (post op follow up) Disposition: HOME - Home Medications Comprehensive Discharge Medication List: Ambulatory Orders Amlodipine Besylate/Benazepril [Lotrel 5-10 mg Capsule] 1 cap PO DAILY 07/18/17 Naproxen Sodium [Naproxen Sodium Cr] 500 mg PO PRN 07/18/17 Oxycodone HCl/Acetaminophen [Oxycodone-Acetaminophen 5-325] 1 each PO PRN This patient is new to me today: No Emergency Visit: Yes Care time: The patient presented to the Emergency Department on the above date and was hospitalized for further evaluation of their emergent condition. Critical Care patient: No - Discharge Referral [facility]erred to [facility] No
--- NOTE | 2017-07-19 14:15 | PN ---
Progress Note (short form) - Note Progress Note: 42M s/p right open quadriceps tendon repair POD #1. -Pain control. -Mechanical (LLE SCD's & KRISTEN's) & Chemical DVT PPx. (ASA 81mg PO BID x 6 weeks). -Incentive spirometry. -RLE cast care: keep it dry (towel bathe only x 2 weeks); don't stick anything inside it to scratch an itch. -PT/OT/Rehab, OOB. -Strict NWB RLE x 3 weeks. -Crutch training. -f/u [facility] ([place] office) , 08/02/2017. -Care per primary medical team.
== END 2017-07-19 14:17 | disposition home or self-care (01) ==
LOC: JER 22:48 → SUATTDRO 07-18 03:28 → UNDOADMOB 07-18 03:28 → JERBED 07-18 03:28 → FASUSAT 07-18 03:28 → FM/S 07-18 11:45 → FASUSAT 07-18 11:53 → FM/S 07-18 13:28 → UNDOADMOB 07-18 13:28 → INTOOBSV 07-18 13:28 → FM/S 07-18 15:04 → FASUSAT 07-18 15:04
PROVIDERS: ATTEND Nurse Practitioner Family
PROC: 0LQL0ZZ Repair Right Upper Leg Tendon, Open Approach (ICD-10-PCS; principal; 2017-07-18 15:00)
DX: S76.111A Strain of right quadriceps muscle, fascia and tendon, initial encounter (principal); X58.XXXA Exposure to other specified factors, initial encounter; Y93.9 Activity, unspecified; Y92.9 Unspecified place or not applicable
CPT/HCPCS: 36415; 71020-TC; 80048; 80053; 81003; 82550; 82553; 84484; 85025; 85027; 85610; 85730; 86850; 86900; 86901; 87086; 93005; 93010; 94010; 94760; 97116-GP; 99281-25; 99283-25